=== PATIENT | male | born 1950 | race Caucasian/White ===

== ENCOUNTER 2019-10-16 16:03 | Emergency (ER) | payer OTHER ==
[~2019-10-16] VITALS: Ht 188 cm; Wt 68.0 kg
[2019-10-16] MEDS ORDERED: [UNRECOGNIZED DRUG - OTHER] (16:21)
[2019-10-16] MEDS ORDERED: TENORMIN25 MG (16:21)
[2019-10-16] MEDS ORDERED: LOSARTAN POTAS100 MG (16:21)
[2019-10-16] MEDS ORDERED: ATORVASTATIN CA20 MG (16:21)
[2019-10-16] MEDS ORDERED: PROZAC40 MG (16:21)
[2019-10-16] MEDS ORDERED: AMLODIPINE-OLM1 EAC3 (16:22)
[2019-10-16] MEDS ORDERED: GLUMETZA500 MG (16:22)
== END 2019-10-16 20:29 | disposition home or self-care (01) ==
LOC: ER 16:03
DX: M25.062 Hemarthrosis, left knee (principal); M12.562 Traumatic arthropathy, left knee